=== PATIENT | female | born 1960 | race Native Hawaiian/Other Pacific Islander ===

== ENCOUNTER 2018-01-27 19:28 | Outpatient (CLI) | payer BC | END 2018-01-27 19:43 | disposition short-term general hospital (02) | LOC: AMB 19:28 | DX: M21.6X1 Other acquired deformities of right foot (principal); R10.2 Pelvic and perineal pain; R19.01 Right upper quadrant abdominal swelling, mass and lump; R06.02 Shortness of breath; V49.49XA Driver injured in collision with other motor vehicles in traffic accident, initial encounter; Y92.414 Local residential or business street as the place of occurrence of the external cause | CPT/HCPCS: A0425; A0427 ==

== ENCOUNTER 2018-01-27 20:01 | Emergency (ER) | payer BC ==
[~2018-01-27] VITALS: Ht 157.5 cm; Wt 79.4 kg
[2018-01-27 21:04] VITALS: BP 124/70; TEMP 98.3
== END 2018-01-27 21:06 | disposition short-term general hospital (02) ==
LOC: ED 20:01
DX: S29.9XXA Unspecified injury of thorax, initial encounter (principal); S82.51XA Displaced fracture of medial malleolus of right tibia, initial encounter for closed fracture; S39.91XA Unspecified injury of abdomen, initial encounter; V43.52XA Car driver injured in collision with other type car in traffic accident, initial encounter
CPT/HCPCS: 93005; 96374; 96375; 99285; J1170; J2405

== ENCOUNTER 2018-02-01 11:20 | Outpatient (CLI) | payer BC | END 2018-02-01 12:10 | disposition short-term general hospital (02) | LOC: AMB 11:20 | DX: S82.51XD Displaced fracture of medial malleolus of right tibia, subsequent encounter for closed fracture with routine healing (principal); S22.20XD Unspecified fracture of sternum, subsequent encounter for fracture with routine healing | CPT/HCPCS: A0425; A0428 ==

== ENCOUNTER 2018-02-01 14:10 | Inpatient (IN) | payer BC ==
[~2018-02-01] VITALS: Ht 158.8 cm; Wt 84.0 kg
[2018-02-01 14:29] VITALS: BP 130/87; TEMP 98.1; Ht 158.8 cm; Wt 84.0 kg
[2018-02-01 20:42] VITALS: BP 128/75; TEMP 98.8
[2018-02-02 09:04] VITALS: BP 123/79; TEMP 98.3
[2018-02-02 14:37] LABS: PLATELET COUNT 303 K/uL (152-353)
[2018-02-02 14:50] LABS: POTASSIUM 3.4 mmol/L (3.6-5.2)
[2018-02-03 20:00] VITALS: BP 116/73; TEMP 98.2
[2018-02-04 19:37] VITALS: BP 118/81; TEMP 98.9
[2018-02-05 19:47] VITALS: BP 108/68; TEMP 98.3
[2018-02-06 08:35] VITALS: BP 110/59; TEMP 98.3
[2018-02-06 19:57] VITALS: BP 107/67; TEMP 98.7
[2018-02-07 19:56] VITALS: BP 107/62; TEMP 98.1
[2018-02-08 05:33] LABS: PLATELET COUNT 474 K/uL (152-353)
[2018-02-08 05:53] LABS: POTASSIUM 3.8 mmol/L (3.6-5.2)
[2018-02-08 20:00] VITALS: BP 90/57; TEMP 98.3
[2018-02-09 08:21] VITALS: BP 113/69; TEMP 98.4
[2018-02-09 19:45] VITALS: BP 103/60; TEMP 98.2
[2018-02-10 19:30] VITALS: BP 105/68; TEMP 98
[2018-02-11 07:49] VITALS: BP 110/70; TEMP 98.5
[2018-02-11 20:00] VITALS: BP 98/57; TEMP 98.4
[2018-02-12 08:00] VITALS: BP 101/64; TEMP 98.4
[2018-02-12 20:00] VITALS: BP 97/62; TEMP 98.4
[2018-02-13 07:53] VITALS: BP 99/56; TEMP 98.6
[2018-02-13 20:00] VITALS: BP 100/65; TEMP 98.6
[2018-02-14 06:21] LABS: PLATELET COUNT 338 K/uL (152-353)
[2018-02-14 06:36] LABS: POTASSIUM 4.1 mmol/L (3.6-5.2)
[2018-02-14 19:53] VITALS: BP 91/58; TEMP 98.3
[2018-02-15 08:27] VITALS: BP 101/63; TEMP 98.3
[2018-02-15 19:48] VITALS: BP 98/56; TEMP 98.2
[2018-02-16 07:29] VITALS: BP 94/55; TEMP 98
[2018-02-16 20:00] VITALS: BP 96/57; TEMP 98
[2018-02-17 08:21] VITALS: BP 103/55; TEMP 98.5
[2018-02-17 20:00] VITALS: BP 115/68; TEMP 98.5
[2018-02-18 19:44] VITALS: BP 95/64; TEMP 98.3
[2018-02-19 19:54] VITALS: BP 98/54; TEMP 98.8
[2018-02-20 08:11] VITALS: BP 108/63; TEMP 98.6
[2018-02-20 20:01] VITALS: BP 93/53; TEMP 98.4
[2018-02-21 05:33] LABS: PLATELET COUNT 321 K/uL (152-353)
[2018-02-21 05:49] LABS: POTASSIUM 3.9 mmol/L (3.6-5.2)
[2018-02-21 08:29] VITALS: BP 93/50; TEMP 98
[2018-02-21 20:00] VITALS: BP 91/47; TEMP 98.3
[2018-02-22 08:02] VITALS: BP 105/63; TEMP 98.3
[2018-02-23 08:41] VITALS: BP 96/61; TEMP 99
[2018-02-23 20:15] VITALS: BP 105/58; TEMP 98
== END 2018-02-24 07:15 | disposition home health service (06) | DRG 556 ==
LOC: MED/SURG 14:10
PROVIDERS: Emergency Medicine; ADMIT Nurse Practitioner Family
DX: M62.81 Muscle weakness (generalized) (principal); J93.9 Pneumothorax, unspecified; S22.42XA Multiple fractures of ribs, left side, initial encounter for closed fracture; S22.20XA Unspecified fracture of sternum, initial encounter for closed fracture; Z47.89 Encounter for other orthopedic aftercare; S82.51XA Displaced fracture of medial malleolus of right tibia, initial encounter for closed fracture; S82.61XA Displaced fracture of lateral malleolus of right fibula, initial encounter for closed fracture; S92.001A Unspecified fracture of right calcaneus, initial encounter for closed fracture; S20.01XA Contusion of right breast, initial encounter
CPT/HCPCS: 80053; 85027